=== PATIENT | male | born 1985 ===

== ENCOUNTER 2017-06-29 14:46 | Emergency (ER) | payer SELFPAY ==
[2017-06-29 15:13] VITALS: BMI 21.7
[2017-06-29 15:20] VITALS: RESP 18; TEMP 98.3; O2SAT 99
[2017-06-29] MEDS ORDERED: Sodium Chloride 0.9% 500 ML IV STA (15:44)
[2017-06-29 16:18] LABS: BASO # 0.02 K/mm3 (0.0-2.0); BASO % 0.2 % (0.0-3.0); EOS # 0.1 (0.0-0.7); EOS % 1.2 % (1.5-5.0); GRAN # 4.6 (1.4-6.5); GRAN % 47.1 % (50.0-68.0); HEMATOCRIT 42.6 % (42.0-52.0); LYMPH # 3.9 (1.2-3.4); LYMPH % 40.1 % (22.0-35.0); MEAN CELL VOLUME 95.7 fl (80.0-105.0); MEAN CORPUSCULAR HEMOGLOBIN 31.9 pg (25.0-35.0); MEAN CORPUSCULAR HGB CONC 33.3 g/dl (31.0-37.0); MEAN PLATELET VOLUME 10.6 fl (7.0-11.0); MONO # 1.1 (0.1-0.6); MONO % 11.4 % (1.0-6.0); RED CELL DISTRIBUTION WIDTH 13.1 % (11.5-14.5); WHITE BLOOD COUNT 9.8 10^3/ul (4.5-11.0)
[2017-06-29 16:25] LABS: ALB/GLOB RATIO 1.4 (1.1-1.8); ALKALINE PHOSPHATASE 60 U/L (38-126); ALT/SGPT 35 U/L (7-56); AST/SGOT 32 U/L (17-59); BILIRUBIN,TOTAL 0.8 mg/dL (0.2-1.3); BLOOD UREA NITROGEN 14 mg/dL (7-21); CARBON DIOXIDE 29 mmol/L (21-33); CHLORIDE 103 mmol/L (98-107); GFR AFRICAN-AMERICAN > 60; GLUCOSE,RANDOM 67 mg/dL (70-110); LIPASE 29 U/L (23-300); POTASSIUM 3.6 mmol/L (3.6-5.0); SODIUM 141 mmol/L (132-148); TOTAL PROTEIN 7.6 g/dL (5.8-8.3)
--- NOTE | 2017-06-29 16:59 | ED PDOC ---
Arrival/HPI - General Chief Complaint: High Blood Sugar Time Seen by Provider: 06/29/17 15:31 Historian: Patient EM Caveat: Other (Patient seems to be under the influence of a drug as he is not very cooperative with providing adequate history as to why he is in the ER and repeatedly is asking clinician to repeat questions that are being asked) - History of Present Illness Narrative History of Present Illness (Text): 06/29/17 15:40 A 31 year old male, whose past medical history includes IDDM x 3 years, presents to the emergency department complaining of not feeling well. Patient recently moved to [place] from [place], and PMD is in [place]. Patient last took Insulin today in the morning. Patient intakes 10 unites of Flexpen. Patient brought in by father due to appearing to not feel well. Patient admits to drinking last night. Patient complains of nausea, vomiting, and fatigue. Also, patient requests for refills of Heplock and Lantus (10 units of Heplock x 3 per day; 20 units of Lantus every night). Denies of any fever, chills, headache, dizziness, chest pain, abdominal pain, diarrhea, urinary output changes, any trauma, or any other complaints. No PMD Past Medical History - Provider Review Nursing Documentation Reviewed: Yes - Infectious Disease Hx of Infectious Diseases: None - Endocrine/Metabolic Hx Diabetes Mellitus Type 1: Yes - Psychiatric Hx Substance Use: Yes - Anesthesia Hx Anesthesia: No Family/Social History - Physician Review Nursing Documentation Reviewed: Yes Family/Social History: No Known Family HX Smoking Status: Heavy Smoker > 10 Cigarettes Daily Hx Alcohol Use: Yes Frequency of alcohol use: Socially Hx Substance Use: Yes Substance used: efrem dust; heroine? Allergies/Home Meds Allergies/Adverse Reactions: Allergies No Known Allergies Allergy (Verified 06/29/17 15:13) Home Medications: Home Meds Medication Instructions Recorded Confirmed Insulin Lispro [Humalog Kwikpen See Protocol SC QID 06/29/17 06/29/17 U-100] Review of Systems - Physician Review All systems were reviewed & negative as marked: Yes - Review of Systems Constitutional: Fatigue. absent: Fevers, Night Sweats, Other (no trauma) Cardiovascular: absent: Chest Pain Gastrointestinal: Nausea, Vomiting. absent: Abdominal Pain, Diarrhea Genitourinary Male: absent: Urinary Output Changes Neurological: absent: Headache, Dizziness Physical Exam Vital Signs Reviewed: Yes Vital Signs Temp Pulse Resp BP Pulse Ox 06/29/17 21:00 84 18 132/74 99 06/29/17 15:20 98.3 F 80 18 145/97 H 99 Temperature: Afebrile Blood Pressure: Normal Pulse: Regular Respiratory Rate: Normal Appearance: Positive for: Well-Appearing, Other Pain Distress: None Mental Status: Positive for: Alert and Oriented X 3 Finger Stick Blood Glucose: 84 - Systems Exam Head: Present: Atraumatic, Normocephalic Pupils: Present: PERRL Extroacular Muscles: Present: EOMI Conjunctiva: Present: Normal Mouth: Present: Dry Neck: Present: Normal Range of Motion Respiratory/Chest: Present: Clear to Auscultation, Good Air Exchange. No: Respiratory Distress, Accessory Muscle Use Cardiovascular: Present: Regular Rate and Rhythm, Normal S1, S2. No: Murmurs Abdomen: Present: Normal Bowel Sounds. No: Tenderness, Distention, Peritoneal Signs Back: Present: Normal Inspection Upper Extremity: Present: Normal Inspection. No: Cyanosis, Edema Lower Extremity: Present: Normal Inspection. No: Edema Neurological: Present: GCS=15, CN II-XII Intact, Speech Normal Skin: Present: Warm, Dry, Normal Color. No: Rashes Psychiatric: Present: Alert, Oriented x 3, Normal Insight, Normal Concentration Medical Decision Making ED Course and Treatment: 06/29/17 15:44 Impression: 31 year old male with nausea, vomiting, and fatigue. Physical exam shows mucous membranes are dry, overall normal examination. Plan: -- Chest X-ray -- Labs -- Urinalysis -- Pepcid -- Zofran -- IV Fluids -- Reassess and disposition Progress Notes: Patient appears to be under the influence of drugs as he is unable to provide a clear history as to why he is here. Therefore labs ordered. Labs reviewed, glucose is 67. Etoh (-). Patient given juice. CXR : NAD, as read by PA. FS : 197 Urine drug screen shows that the patient is (+) for PCP. On re-evaluation, patient remains awake, alert, and oriented x3, ambulating in the ER in no acute distress. Patient states that he feels well and has no other complaints at this time. Denies any headache, dizziness, CP, N/V or abdominal pain. VSS. Refills for novolog pen and lantus provided to the patient. Advised to f/u with the clinic in 2 days without fail. - Lab Interpretations Lab Results: 06/29/17 16:00 06/29/17 16:00 Lab Results 06/29/17 21:01: POC Glucose (mg/dL) 205 H 06/29/17 19:35: Urine Opiates Screen Negative, Urine Methadone Screen Negative, Ur Barbiturates Screen Negative, Ur Phencyclidine Scrn Positive H, Ur Amphetamines Screen Negative, U Benzodiazepines Scrn Negative, U Oth Cocaine Metabols Negative, U Cannabinoids Screen Negative 06/29/17 17:35: Urine Color Yellow, Urine Appearance Clear, Urine pH 6.0, Ur Specific [place] 1.010, Urine Protein Negative, Urine Glucose (UA) Negative, Urine Ketones Negative, Urine Blood Negative, Urine Nitrate Negative, Urine Bilirubin Negative, Urine Urobilinogen 0.2, Ur Leukocyte Esterase Negative 06/29/17 16:48: POC Glucose (mg/dL) 64 L 06/29/17 16:00: Alcohol, Quantitative < 10 06/29/17 16:00: Sodium 141, Potassium 3.6, Chloride 103, Carbon Dioxide 29, Anion Gap 12, BUN 14, Creatinine 0.7 L, Est GFR ( Amer) > 60, Est GFR ( Non-Af Amer) > 60, Random Glucose 67 L, Calcium 10.0, Total Bilirubin 0.8, AST 32, ALT 35, Alkaline Phosphatase 60, Total Protein 7.6, Albumin 4.4, Globulin 3.1, Albumin/Globulin Ratio 1.4, Lipase 29 06/29/17 16:00: WBC 9.8, RBC 4.45, Hgb 14.2, Hct 42.6, MCV 95.7, MCH 31.9, MCHC 33.3, RDW 13.1, Plt Count 285, MPV 10.6, Gran % 47.1 L, Lymph % (Auto) 40.1 H, [place] % (Auto) 11.4 H, Eos % (Auto) 1.2 L, Baso % (Auto) 0.2, Gran # 4.60, Lymph # 3.9 H, [place] # 1.1 H, Eos # 0.1, Baso # 0.02 06/29/17 15:19: POC Glucose (mg/dL) 84 - RAD Interpretation Radiology Orders: 06/29/17 17:00 CHEST PORTABLE [RAD] Stat - Medication Orders Current Medication Orders: Discontinued Medications Famotidine (Pepcid) 20 mg IVP STAT STA Stop: 06/29/17 15:45 Last Admin: 06/29/17 16:05 Dose: 20 mg IVP Administration Document 06/29/17 16:05 SRE (Rec: 06/29/17 16:05 SRE [id number]) Charges for Administration # of IVP Administrations 1 Sodium Chloride (Sodium Chloride 0.9%) 500 mls @ 1,000 mls/hr IV .Q30M STA Stop: 06/29/17 16:13 Last Admin: 06/29/17 16:03 Dose: 1,000 mls/hr eMAR Start Stop Document 06/29/17 16:03 SRE (Rec: 06/29/17 16:05 SRE [id number]) Intravenous Solution Start Date 06/29/17 Start Time 16:05 End Date 06/29/17 End time 17:00 Total Infusion Time 55 Ondansetron HCl (Zofran Inj) 4 mg IVP STAT STA Stop: 06/29/17 15:45 Last Admin: 06/29/17 16:05 Dose: 4 mg IVP Administration Document 06/29/17 16:05 SRE (Rec: 06/29/17 16:05 SRE [id number]) Charges for Administration # of IVP Administrations 1 - PA / MOVIE THEATER USHER / Resident Statement MD/DO has reviewed & agrees with the documentation as recorded. - Scribe Statement The provider has reviewed the documentation as recorded by the April Leyva Provider Scribe Attestation: All medical record entries made by the April were at my direction and personally dictated by me. I have reviewed the chart and agree that the record accurately reflects my personal performance of the history, physical exam, medical decision making, and the department course for this patient. I have also personally directed, reviewed, and agree with the discharge instructions and disposition. Disposition/Present on Arrival - Present on Arrival Any Indicators Present on Arrival: No History of DVT/PE: No History of Uncontrolled Diabetes: No Urinary Catheter: No History of Decub. Ulcer: No History Surgical Site Infection Following: None - Disposition Have Diagnosis and Disposition been Completed?: Yes Diagnosis: Nausea, Medication refill, PCP (phencyclidine) abuse Disposition: HOME/ ROUTINE Disposition Time: 20:57 Patient Plan: Discharge Condition: STABLE Discharge Instructions (ExitCare): Acute Nausea and Vomiting (ED), Medicine Refill (ED) Print Language: WELSH Additional Instructions: Thank you for letting us take care of you today. You were treated for nausea, medication refill. The emergency medical care you received today was directed at your acute symptoms. If you were prescribed any medication, please fill it and take as directed. It may take several days for your symptoms to resolve. Return to the Emergency Department if your symptoms worsen, do not improve, or if you have any other problems. Please contact your doctor in 2 days for re-evaluation and follow up / or call one of the physicians/clinics you have been referred to that are listed on the Patient Visit Information form that is included in your discharge packet. Bring any paperwork you were given at discharge with you along with any medications you are taking to your follow up visit. Our treatment cannot replace ongoing medical care by a primary care provider (PCP) outside of the emergency department. Thank you for allowing the [facility] team to be part of your care today. Prescriptions: Insulin Aspart [Novolog FLEXPEN] 10 unit SC TID #50 ml Insulin Glargine,Hum.rec.anlog [Lantus Solostar] 20 unit SQ QPM #1 insuln.pen [place], Disposable [Needle] 1 each SC DAILY #100 dis.needle [place], Safety [Needle] 1 each SC DAILY #100 dis.needle Referrals: PCP,NO [Primary Care Provider] - Follow up with primary Forms: [employer] (Dominican), WORK NOTE
[2017-06-29 20:17] LABS: URINE BILIRUBIN NEGATIVE (NEGATIVE); URINE BLOOD NEGATIVE (NEGATIVE); URINE GLUCOSE (UA) NEGATIVE (NEGATIVE); URINE KETONE NEGATIVE (NEGATIVE); URINE LEUKOCYTE ESTERASE NEGATIVE Leu/uL (NEGATIVE); URINE PROTEIN NEGATIVE mg/dL (<30 mg/dL); URINE UROBILINOGEN 0.2 E.U./dL (<1 E.U./dL)
[2017-06-29 20:20] LABS: URINE APPEARANCE CLEAR (CLEAR); URINE COLOR YELLOW (YELLOW)
[2017-06-29 21:13] VITALS: BP 132/74; PULSE 84
--- NOTE | 2017-06-30 08:26 | RAD ---
HISTORY: nausea COMPARISON: None available. TECHNIQUE: Chest, one view. FINDINGS: LUNGS: No focal consolidation.20 x 12 mm ovoid density within the right lung apex near the anterior 1st and 2nd right ribs ; this possibly reflects confluence of shadows however nodule cannot be entirely excluded. Please note that chest x-ray has limited sensitivity for the detection of pulmonary masses. PLEURA: No significant pleural effusion identified. No definite pneumothorax . CARDIOVASCULAR: The cardiomediastinal silhouette appears within normal limits of size. OSSEOUS STRUCTURES: No acute osseous abnormality identified. VISUALIZED UPPER ABDOMEN: Unremarkable. OTHER FINDINGS: None. IMPRESSION: 20 x 12 mm ovoid density within the right lung apex near the anterior 1st and 2nd right ribs ; this possibly reflects confluence of shadows however nodule cannot be entirely excluded. Outpatient chest CT may be considered for further evaluation if indicated. Study marked for PA review.
== END 2017-06-29 21:13 | disposition home or self-care (01) ==
LOC: ED 14:46
DX: R11.0 Nausea (principal); Z76.0 Encounter for issue of repeat prescription; F16.10 Hallucinogen abuse, uncomplicated; E11.9 Type 2 diabetes mellitus without complications; Z79.4 Long term (current) use of insulin
CPT/HCPCS: 71010; 80053; 81003; 82948; 83690; 85025; 96361; 96374; 96375; 99284; G0480; J2405; J7040

== ENCOUNTER 2017-08-07 19:44 | Emergency (ER) | payer SELFPAY ==
[2017-08-07 20:00] VITALS: BMI 22.1
--- NOTE | 2017-08-07 21:50 | ED PDOC ---
Arrival/HPI - General Historian: Patient <Gogo Salcedo - Last Filed: 08/07/17 21:47> <Mikel Marti - Last Filed: 08/08/17 06:23> - General Chief Complaint: Psychiatric Evaluation Time Seen by Provider: 08/07/17 21:45 - History of Present Illness Narrative History of Present Illness (Text): 08/07/17 21:47 31 year old male, whose past medical history includes IDDM x 3 years, presents to the emergency department complaining of not feeling well. Patient stated he is diabetic and he would like to be checked. Patient admits taking PCP earlier today. (Gogo Salcedo) Past Medical History - Infectious Disease Hx of Infectious Diseases: None - Cardiac Hx Cardiac Disorders: No - Pulmonary Hx Respiratory Disorders: No - Neurological Hx Neurological Disorder: No - HEENT Hx HEENT Disorder: No - Renal Hx Renal Disorder: No - Endocrine/Metabolic Hx Endocrine Disorders: Yes Hx Diabetes Mellitus Type 1: Yes - Hematological/Oncological Hx Blood Disorders: No - Integumentary Hx Dermatological Disorder: No - Musculoskeletal/Rheumatological Hx Musculoskeletal Disorders: No - Gastrointestinal Hx Gastrointestinal Disorders: No - Genitourinary/Gynecological Hx Genitourinary Disorders: No - Psychiatric Hx Psychophysiologic Disorder: No Hx Substance Use: Yes - Anesthesia Hx Anesthesia: No <Gogo Salcedo - Last Filed: 08/07/17 21:47> Family/Social History Smoking Status: Heavy Smoker > 10 Cigarettes Daily Hx Alcohol Use: Yes Hx Substance Use: Yes Substance used: efrem dust, heroine, PCP <Gogo Salcedo - Last Filed: 08/07/17 21:47> Allergies/Home Meds <Gogo Salcedo - Last Filed: 08/07/17 21:47> <Mikel Marti - Last Filed: 08/08/17 06:23> Allergies/Adverse Reactions: Allergies No Known Allergies Allergy (Verified 06/29/17 15:13) Home Medications: Home Meds Medication Instructions Recorded Confirmed Insulin Lispro [Humalog Kwikpen See Protocol SC QID 06/29/17 06/29/17 U-100] Physical Exam Finger Stick Blood Glucose: 100 <Gogo Salcedo - Last Filed: 08/07/17 21:47> Vital Signs Temp Pulse Resp BP Pulse Ox 08/08/17 03:45 98.2 F 76 18 128/76 99 Medical Decision Making <Gogo Salcedo - Last Filed: 08/07/17 21:47> <Mikel Marti - Last Filed: 08/08/17 06:23> ED Course and Treatment: 08/08/17 06:19 Pt. was seen and evaluated by ALFREDO Hernandez who d/w psychiatrist Dr.Olga Tinsley..Cleared for discharge.Follow up care instructions by ALFREDO. ( Mikel Marti) - Lab Interpretations Lab Results: 08/07/17 22:10 08/07/17 22:10 Lab Results 08/08/17 04:39: POC Glucose (mg/dL) 386 H 08/07/17 22:10: Salicylates < 1 L, Acetaminophen < 10.0 L 08/07/17 22:10: Alcohol, Quantitative < 10 08/07/17 22:10: Sodium 138, Potassium 4.3, Chloride 102, Carbon Dioxide 31, Anion Gap 9 L, BUN 19, Creatinine 0.8, Est GFR ( Amer) > 60, Est GFR (Non -Af Amer) > 60, Random Glucose 121 H, Calcium 9.6, Total Bilirubin 0.3, AST 25, ALT 28, Alkaline Phosphatase 52, Total Protein 6.9, Albumin 4.0, Globulin 2.9, Albumin/Globulin Ratio 1.4 08/07/17 22:10: WBC 9.7, RBC 4.41, Hgb 14.3, Hct 42.4, MCV 96.1, MCH 32.4, MCHC 33.7, RDW 12.3, Plt Count 230, MPV 12.0 H, Gran % 58.3, Lymph % (Auto) 32.2, [place] % (Auto) 8.0 H, Eos % (Auto) 1.3 L, Baso % (Auto) 0.2, Gran # 5.65, Lymph # 3.1, [place] # 0.8 H, Eos # 0.1, Baso # 0.02 - Medication Orders Current Medication Orders: Discontinued Medications Insulin Human Regular (Humulin R) 6 units SC STAT STA Stop: 08/08/17 04:55 Last Admin: 08/08/17 05:05 Dose: 6 units [facility] Blood Glucose Document 08/08/17 05:05 [facility] (Rec: 08/08/17 05:05 [id number] Blood Glucose Finger Stick Blood Glucose (70-120) 386 Subcutaneous Administrations Document 08/08/17 05:05 SAVAGE (Rec: 08/08/17 05:05 [facility] [id number]) Charges for Administration # of Subcutaneous Administrations 1 - PA / LEARNING AND DEVELOPMENT OFFICER / Resident Statement / has reviewed & agrees with the documentation as recorded. / has examined the patient and agrees with the treatment plan. <Mikel Marti - Last Filed: 08/08/17 06:23> Disposition/Present on Arrival - Present on Arrival History of DVT/PE: No History of Uncontrolled Diabetes: No Urinary Catheter: No History of Decub. Ulcer: No History Surgical Site Infection Following: None <Gogo Salcedo - Last Filed: 08/07/17 21:47> - Present on Arrival Any Indicators Present on Arrival: No - Disposition Have Diagnosis and Disposition been Completed?: Yes Disposition Time: 06:21 Patient Plan: Discharge <Mikel Marti - Last Filed: 08/08/17 06:23> - Disposition Diagnosis: PCP abuse, Diabetes mellitus Disposition: HOME/ ROUTINE Condition: GOOD Additional Instructions: Follow up out patient as instructed. Referrals: Irma Gooden Rehector, [Primary Care Provider] - Follow up with primary [facility] [Outside] - Follow up with primary Forms: [employer] (Danish)
[2017-08-07 22:29] LABS: BASO # 0.02 K/mm3 (0.0-2.0); BASO % 0.2 % (0.0-3.0); EOS # 0.1 (0.0-0.7); EOS % 1.3 % (1.5-5.0); GRAN # 5.65 (1.4-6.5); GRAN % 58.3 % (50.0-68.0); HEMOGLOBIN 14.3 g/dL (14.0-18.0); LYMPH # 3.1 (1.2-3.4); LYMPH % 32.2 % (22.0-35.0); MEAN CELL VOLUME 96.1 fl (80.0-105.0); MEAN CORPUSCULAR HEMOGLOBIN 32.4 pg (25.0-35.0); MEAN CORPUSCULAR HGB CONC 33.7 g/dl (31.0-37.0); MONO # 0.8 (0.1-0.6); RBC 4.41 10^6/uL (3.5-6.1); RED CELL DISTRIBUTION WIDTH 12.3 % (11.5-14.5); WHITE BLOOD COUNT 9.7 10^3/ul (4.5-11.0)
[2017-08-07 22:42] LABS: ACETAMINOPHEN < 10.0 ug/ml (10.0-20.0); SALICYLATE < 1 mg/dL (2.0-20.0)
[2017-08-07 22:43] LABS: ALB/GLOB RATIO 1.4 (1.1-1.8); ALT/SGPT 28 U/L (7-56); AST/SGOT 25 U/L (17-59); BLOOD UREA NITROGEN 19 mg/dL (7-21); CALCIUM 9.6 mg/dL (8.4-10.5); GFR AFRICAN-AMERICAN > 60; GFR NON-AFRICAN AMERICAN > 60
[2017-08-08 04:28] VITALS: BP 128/76; PULSE 76; RESP 18; TEMP 98.2; O2SAT 99
[2017-08-08] MEDS ORDERED: Insulin Regular 1 UNITS/0.01 ML ML SC STA (04:54)
== END 2017-08-08 06:15 | disposition home or self-care (01) ==
LOC: ED 19:44
DX: F16.10 Hallucinogen abuse, uncomplicated (principal); E11.9 Type 2 diabetes mellitus without complications; F17.210 Nicotine dependence, cigarettes, uncomplicated
CPT/HCPCS: 80053; 82948; 85025; 90791; 96372; 99283; G0480